=== PATIENT | female | born 1965 | race Two or more races ===

== ENCOUNTER 2022-11-15 23:20 | Inpatient (IN) | payer OTHER ==
[~2022-11-15] VITALS: Ht 157.5 cm; Wt 64.4 kg
--- NOTE | 2022-11-16 00:20 | NUR ---
PTE VERBALIZA QUE DESDE HACE 2 BLOCK LLEVA CON FIEBRE Y QUE EPSTEIN NOTADO OLOR INTENSO EN LA ORINA Y EL COLOR ES TURBIO. PTE SE OBSERVA A/O X4.
--- NOTE | 2022-11-16 01:32 | NUR ---
PTE FEMENINA EVALUADA POR , RN SIM ORIENTA SOBRE ORDENES DE [place] REFIERE COMPRENDER. CANALIZA VENA BAJO MEDIDAS ASEPTICAS, AREA SAMY DE EDEMA Y ERITEMA. ADMINISTRA MEDICAMENTOS, BAJO MEDIDAS ASEPTICAS. ENTREGA ENVASE PARA COLECCION DE MUESTRA DE U/C Y ORIENTA PTE. PENDIENTE CONSULTA CON MEDICINA INTERNA,YA NOTIFICADA.
--- NOTE | 2022-11-16 07:27 | NUR ---
SE RECIBE PACIENTE DEL TURNO ANTERIOR, LA MISMA SE ENCUENTRA UBICADA EN RAMÍREZ CON BARANDAS ELEVADAS POR PRECAUCION A CAIDAS. SE ENCUENTRA ALERTA Y ORIENTADA X3. RECIBIENDO R/L BAJANDO A 85ML/HR. PENDIENTE CONSULTA CON DRA MENDEZ.
== END 2022-11-19 13:40 | disposition home or self-care (01) | DRG 690 ==
LOC: ER 23:20 → SEC-K 11-16 16:29 → MEDJ 11-16 16:29 → MEDI 11-16 16:50 → MEDJ 11-16 18:31
PROVIDERS: ADMIT Internal Medicine; ATTEND Internal Medicine
PROC: BW21YZZ Computerized Tomography (CT Scan) of Abdomen and Pelvis using Other Contrast (ICD-10-PCS; principal; 2022-11-16)
DX: N39.0 Urinary tract infection, site not specified (principal); N12 Tubulo-interstitial nephritis, not specified as acute or chronic; B96.20 Unspecified Escherichia coli [E. coli] as the cause of diseases classified elsewhere; Z20.822 Contact with and (suspected) exposure to COVID-19; E03.9 Hypothyroidism, unspecified

== ENCOUNTER → 2022-11-15 | Emergency (ER) | payer OTHER ==
[~2022-11-15] VITALS: Ht 165.1 cm; Wt 59.0 kg
[~2022-11-15] MED LIST: SYNTHROID50 MCG PO
== END | disposition left against medical advice (07) ==
LOC: ER 15:42
DX: R68.83 Chills (without fever) (principal); N39.0 Urinary tract infection, site not specified